=== PATIENT | female | born 1975 | race Hispanic/Latino ===

== ENCOUNTER 2022-05-17 11:59 | Inpatient (IN) | payer OTHER ==
[~2022-05-17] VITALS: Ht 162.6 cm; Wt 102.1 kg
[2022-05-17] MEDS ORDERED: SODIUM CHLORIDE 0.9% 1000ML 1,000 ML IV ONE (12:30)
[2022-05-17] MEDS ORDERED: HYDROCODONE/APAP 5MG-325MG TAB PO ONE (12:30)
[2022-05-17 12:50] LABS: BASOPHILS # (AUTO) 0.1 (0.0-0.1); BASOPHILS % 0.7 % (0.0-1.0); EOSINOPHILS # (AUTO) 0.2 (0.0-0.4); EOSINOPHILS % 1.8 % (0.0-6.0); HEMATOCRIT 23.5 % (34.2-44.1); LYMPHOCYTES # (AUTO) 2.8 (1.0-3.2); LYMPHOCYTES % 32.2 % (18.0-39.1); MEAN CORPUSCULAR HEMOGLOBIN 29.1 pg (28-32); MEAN CORPUSCULAR HGB CONC 32.8 g/dL (31-35); MEAN CORPUSCULAR VOLUME 88.7 fL (81-99); MONOCYTES # (AUTO) 0.7 (0.2-0.8); MONOCYTES % 7.8 % (4.4-11.3); NEUTROPHILS # (AUTO) 5.1 (2.1-6.9); NEUTROPHILS % 57.2 % (38.7-80.0); PLATELET COUNT 288 x10e3/uL (140-360); RED BLOOD COUNT 2.65 x10e6/uL (3.6-5.1); RED CELL DISTRIBUTION WIDTH 15.9 % (11.7-14.4)
[2022-05-17 12:55] LABS: CLARITY,URINE SL CLOUDY (CLEAR); COLOR,URINE YELLOW (YELLOW); LEUKOCYTE ESTERASE ,URINE NEGATIVE (NEGATIVE); NITRITE,URINE NEGATIVE (NEGATIVE)
[2022-05-17 12:56] LABS: KETONES,URINE >=160 (NEGATIVE); PROTEIN,URINE DIPSTICK 1+ (NEGATIVE); URINE UROBILINOGEN 1 mg/dL (0.2 - 1)
[2022-05-17 13:00] LABS: HEMOGLOBIN 7.7 g/dL (12.0-16.0)
[2022-05-17 13:01] LABS: INR 0.93; PROTHROMBIN TIME 13.3 seconds (11.9-14.5)
[2022-05-17 13:02] LABS: PARTIAL THROMBOPLASTIN TIME 26.6 seconds (23.8-35.5)
[2022-05-17 13:25] LABS: EPITHELIAL CELLS,URINE FEW /LPF
[2022-05-17 13:26] LABS: ALBUMIN 3.6 g/dL (3.5-5.0); ALBUMIN/GLOBULIN RATIO 0.9 (0.8-2.0); ANION GAP 13.4 mmol/L (8-16); BACTERIA,URINE FEW /HPF; CALCIUM 8.6 mg/dL (8.4-10.2); CREATININE, SERUM 0.66 mg/dL (0.57-1.11); POTASSIUM 3.4 mmol/L (3.5-5.1); RBC,URINE 0-5 /HPF (0-5); TRANSITIONAL EPI CELLS,URINE RARE; WBC,URINE (MAN) 0-5 /HPF (0-5)
[2022-05-17] MEDS ORDERED: IOPAMIDOL 370 MG/ML 100 ML INFUS..BTL INJ ONE (13:44)
[2022-05-17] MEDS ORDERED: ASPIRIN 81 MG CHEW TAB PO ONE (16:15)
[2022-05-17] MEDS: Morphine 2mg Syringe 2 MG/ML SYR IV PRN ×2 (18:07→22:25)
[2022-05-17] MEDS ORDERED: ONDANSETRON HCL INJ 2MG/ML 2ML 2 MG/ML VIAL ONE (18:13)
[2022-05-17] MEDS ORDERED: ONDANSETRON HCL INJ 2MG/ML 2ML 2 MG/ML VIAL IV STA (18:15)
[2022-05-17 20:00] VITALS: BP 112/58
[2022-05-17 22:02] LABS: CREATINE KINASE MB 0.6 ng/mL (0-5.0)
[2022-05-18] VITALS (8 sets, daily range): BP systolic 105–134; BP diastolic 54–81
[2022-05-18] MEDS ORDERED: BISACODYL 5 MG TAB EC PO ONE ×2 (00:30)
[2022-05-18 04:52] LABS: BASOPHILS # (AUTO) 0.1 (0.0-0.1); BASOPHILS % 0.5 % (0.0-1.0); EOSINOPHILS # (AUTO) 0.2 (0.0-0.4); HEMATOCRIT 22.1 % (34.2-44.1); HEMOGLOBIN 7.1 g/dL (12.0-16.0); LYMPHOCYTES # (AUTO) 2.8 (1.0-3.2); LYMPHOCYTES % 28.1 % (18.0-39.1); MEAN CORPUSCULAR HEMOGLOBIN 29.2 pg (28-32); MEAN CORPUSCULAR HGB CONC 32.1 g/dL (31-35); MEAN CORPUSCULAR VOLUME 90.9 fL (81-99); MONOCYTES # (AUTO) 0.8 (0.2-0.8); MONOCYTES % 8.2 % (4.4-11.3); NEUTROPHILS % 60.9 % (38.7-80.0); PLATELET COUNT 269 x10e3/uL (140-360); RED BLOOD COUNT 2.43 x10e6/uL (3.6-5.1); RED CELL DISTRIBUTION WIDTH 15.9 % (11.7-14.4)
[2022-05-18] MEDS ORDERED: CITRATE OF MAGNESIA 300ML BOTTLE PO ONE ×2 (05:00)
[2022-05-18 05:16] LABS: ALBUMIN 3.3 g/dL (3.5-5.0); ALBUMIN/GLOBULIN RATIO 0.8 (0.8-2.0); ANION GAP 10.8 mmol/L (8-16); CALCIUM 8.2 mg/dL (8.4-10.2); CREATININE, SERUM 0.67 mg/dL (0.57-1.11); POTASSIUM 3.8 mmol/L (3.5-5.1)
[2022-05-18 06:02] LABS: FERRITIN 20.06 ng/mL (4.63-204.00)
[2022-05-18 06:10] LABS: CREATINE KINASE MB 0.6 ng/mL (0-5.0)
[2022-05-18] MEDS: ONDANSETRON HCL INJ 2MG/ML 2ML 2 MG/ML VIAL IV PRN ×3 (06:32→21:25)
[2022-05-18] MEDS: PANTOPRAZOLE SOD 40 MG TABEC PO SCH (09:01)
[2022-05-18] MEDS: Morphine 2mg Syringe 2 MG/ML SYR IV PRN ×3 (09:01→21:26)
[2022-05-18 15:28] LABS: CREATINE KINASE MB 0.8 ng/mL (0-5.0)
[2022-05-18] MEDS ORDERED: HYOSCYAMINE SULFATE 0.5 MG/ML INJ ONE (19:13)
[2022-05-18] MEDS ORDERED: HYDROCORTISONE ACETATE 25 MG/SUPP.RECT SUPP RC STA (19:49)
[2022-05-18] MEDS: SODIUM FERRIC GLUCONATE COMPLX 125 MG in SODIUM CHLORIDE 0.9% 100 ML IV SCH (21:24)
[2022-05-18] MEDS: SODIUM CHLORIDE 0.9% 1000ML 1,000 ML IV SCH (21:27)
[2022-05-19] VITALS: BP 113/73
[2022-05-19 04:00] VITALS: BP 109/72
[2022-05-19 04:48] LABS: BASOPHILS % 0.4 % (0.0-1.0); EOSINOPHILS # (AUTO) 0.3 (0.0-0.4); EOSINOPHILS % 2.6 % (0.0-6.0); HEMATOCRIT 23.1 % (34.2-44.1); HEMOGLOBIN 7.4 g/dL (12.0-16.0); LYMPHOCYTES # (AUTO) 1.7 (1.0-3.2); LYMPHOCYTES % 17.7 % (18.0-39.1); MEAN CORPUSCULAR HEMOGLOBIN 29.1 pg (28-32); MEAN CORPUSCULAR VOLUME 90.9 fL (81-99); MONOCYTES # (AUTO) 0.6 (0.2-0.8); MONOCYTES % 6.3 % (4.4-11.3); NEUTROPHILS # (AUTO) 6.9 (2.1-6.9); NEUTROPHILS % 72.8 % (38.7-80.0); PLATELET COUNT 283 x10e3/uL (140-360); RED BLOOD COUNT 2.54 x10e6/uL (3.6-5.1); RED CELL DISTRIBUTION WIDTH 15.6 % (11.7-14.4)
[2022-05-19 05:08] LABS: ANION GAP 11.5 mmol/L (8-16); CALCIUM 7.9 mg/dL (8.4-10.2); CREATININE, SERUM 0.71 mg/dL (0.57-1.11); POTASSIUM 3.5 mmol/L (3.5-5.1)
[2022-05-19 07:58] VITALS: BP 119/76
[2022-05-19 08:01] VITALS: BP 119/76
[2022-05-19] MEDS: SODIUM FERRIC GLUCONATE COMPLX 125 MG in SODIUM CHLORIDE 0.9% 100 ML IV SCH ×2 (08:37→10:25)
[2022-05-19] MEDS: PANTOPRAZOLE SOD 40 MG TABEC PO SCH (08:39)
[2022-05-19] MEDS: ONDANSETRON HCL INJ 2MG/ML 2ML 2 MG/ML VIAL IV PRN (08:39)
[2022-05-19] MEDS: Morphine 2mg Syringe 2 MG/ML SYR IV PRN (08:39)
[2022-05-19] MEDS: HYDROCORTISONE ACETATE 25 MG/SUPP.RECT SUPP RC SCH ×2 (08:40→16:59)
[2022-05-19] MEDS ORDERED: HYDROCODONE/APAP 5MG-325MG TAB PO PRN (09:15)
[2022-05-19 12:00] VITALS: BP 112/70
[2022-05-19] MEDS: SODIUM CHLORIDE 0.9% 1000ML 1,000 ML IV SCH (14:59)
[2022-05-19 15:33] VITALS: BP 98/60
[2022-05-19] MEDS ORDERED: ASCORBIC ACID 500 MG TAB PO SCH (17:00)
[2022-05-19] MEDS ORDERED: PROTONIX40 MG/ML PO (17:44)
[2022-05-19] MEDS ORDERED: ASCORBIC ACID500 MG PO (17:44)
[2022-05-19] MEDS ORDERED: FEROSUL325 MG PO (17:44)
[2022-05-20] MEDS ORDERED: FERROUS SULFATE 325 MG TAB PO SCH (08:00)
== END 2022-05-19 18:42 | disposition home or self-care (01) | DRG 379 ==
LOC: ER 12:05 → ERHOLD 16:17 → MED/SURG 20:00
PROVIDERS: ADMIT Internal Medicine; ATTEND Internal Medicine
PROC: 0DBK8ZX Excision of Ascending Colon, Via Natural or Artificial Opening Endoscopic, Diagnostic (ICD-10-PCS; principal; 2022-05-18 18:51)
DX: K57.31 Diverticulosis of large intestine without perforation or abscess with bleeding (principal); D50.0 Iron deficiency anemia secondary to blood loss (chronic); E66.01 Morbid (severe) obesity due to excess calories; Z68.38 Body mass index [BMI] 38.0-38.9, adult; K80.80 Other cholelithiasis without obstruction; K76.0 Fatty (change of) liver, not elsewhere classified; K64.8 Other hemorrhoids; Z20.822 Contact with and (suspected) exposure to COVID-19; F12.10 Cannabis abuse, uncomplicated; F10.10 Alcohol abuse, uncomplicated; R73.9 Hyperglycemia, unspecified
CPT/HCPCS: 0223U; 36415; 45378; 45385; 71045; 74177; 80048; 80053; 81001; 82550; 82553; 82607; 82728; 82746; 82948; 83036; 83540; 83690; 84466; 84484; 84702; 85025; 85045; 85610; 85730; 86850; 86900; 88305; 93005; 96361; 99284; J1980; J2270; J2405; J2916; J7030; J7050; Q9967

== ENCOUNTER 2024-10-20 07:33 | Emergency (ER) | payer OTHER ==
[~2024-10-20] VITALS: Ht 162.6 cm; Wt 102.1 kg
[~2024-10-20 07:33] MED LIST: ASCORBIC ACID500 MG PO; FEROSUL325 MG PO; ONDANSETRON ODT4 MG PO; PROTONIX20 MG PO; PROTONIX40 MG/ML PO
[2024-10-20 07:37] VITALS: TEMP 98.8
[2024-10-20 08:00] LABS: BASOPHILS # (AUTO) 0.1 (0.0-0.1); BASOPHILS % 1.4 % (0.0-1.0); EOSINOPHILS # (AUTO) 0.3 (0.0-0.4); EOSINOPHILS % 3.5 % (0.0-6.0); HEMATOCRIT 34.9 % (34.2-44.1); HEMOGLOBIN 10.3 g/dL (12.0-16.0); LYMPHOCYTES # (AUTO) 1.8 (1.0-3.2); LYMPHOCYTES % 20.3 % (18.0-39.1); MEAN CORPUSCULAR HEMOGLOBIN 24.8 pg (28-32); MEAN CORPUSCULAR HGB CONC 29.5 g/dL (31-35); MEAN CORPUSCULAR VOLUME 84.1 fL (81-99); MONOCYTES # (AUTO) 0.7 (0.2-0.8); MONOCYTES % 7.9 % (4.4-11.3); NEUTROPHILS # (AUTO) 5.8 (2.1-6.9); NEUTROPHILS % 66.6 % (38.7-80.0); PLATELET COUNT 261 x10e3/uL (140-360); RED BLOOD COUNT 4.15 x10e6/uL (3.6-5.1); RED CELL DISTRIBUTION WIDTH 19.7 % (11.7-14.4); WHITE BLOOD COUNT 8.66 x10e3/uL (4.8-10.8)
[2024-10-20] MEDS: SODIUM CHLORIDE 0.9% 1000ML 1,000 ML IV STA (08:15)
[2024-10-20] MEDS: ONDANSETRON HCL INJ 2MG/ML 2ML 2 MG/ML VIAL IV STA (08:17)
[2024-10-20 08:35] LABS: CORONAVIRUS COVID-19 AG NEGATIVE (NEGATIVE); INFLUENZA A AG NEGATIVE (NEGATIVE); INFLUENZA B AG NEGATIVE (NEGATIVE); INR 0.86; PARTIAL THROMBOPLASTIN TIME 32.6 seconds (23.8-35.5); PROTHROMBIN TIME 12.3 seconds (11.9-14.5)
[2024-10-20 08:46] LABS: ALBUMIN 3.9 g/dL (3.5-5.0); ALBUMIN/GLOBULIN RATIO 0.9 (0.8-2.0); ANION GAP 17.8 mmol/L (8-16); BILIRUBIN,TOTAL 0.4 mg/dL (0.2-1.2); CALCIUM 8.7 mg/dL (8.4-10.2); CREATININE, SERUM 0.64 mg/dL (0.57-1.11); MAGNESIUM 1.8 MG/DL (1.3-2.1); POTASSIUM 3.8 mmol/L (3.5-5.1); TOTAL PROTEIN 8.2 g/dL (6.5-8.1)
[2024-10-20 08:52] LABS: TROPONIN I 0.02 ng/mL (0-0.300)
[2024-10-20 09:07] VITALS: RESP 18
[2024-10-20] MEDS ORDERED: SODIUM CHLORIDE 0.9% 100 ML ONE (09:57)
[2024-10-20] MEDS ORDERED: IOPAMIDOL 370 MG/ML 100 ML INFUS..BTL INJ ONE (09:57)
[2024-10-20] MEDS ORDERED: PANTOPRAZOLE SO40 MG PO (10:58)
[2024-10-20] MEDS ORDERED: ONDANSETRON ODT4 MG PO (10:58)
[2024-10-20] MEDS ORDERED: DICYCLOMINE HCL20 MG PO (10:58)
[2024-10-20 11:06] VITALS: PULSE 63; O2SAT 100
[2024-10-20] MEDS: DICYCLOMINE HCL 20 MG/2 ML VIAL IM ONE (11:06)
== END 2024-10-20 11:33 | disposition home or self-care (01) ==
LOC: ER 07:39
DX: K62.5 Hemorrhage of anus and rectum (principal); K57.90 Diverticulosis of intestine, part unspecified, without perforation or abscess without bleeding; K80.20 Calculus of gallbladder without cholecystitis without obstruction; E11.9 Type 2 diabetes mellitus without complications; Z11.52 Encounter for screening for COVID-19; R94.31 Abnormal electrocardiogram [ECG] [EKG]
CPT/HCPCS: 36415; 71045; 74174; 80053; 82550; 83690; 83735; 84484; 85025; 85610; 85730; 87428; 93005; 99284; J0500; J2405; J2470; J7030; J7050; Q9967

== ENCOUNTER 2025-04-03 09:14 | Emergency (ER) | payer OTHER ==
[~2025-04-03] VITALS: Ht 162.6 cm; Wt 102.1 kg
[~2025-04-03 09:14] MED LIST changes: +DICYCLOMINE HCL20 MG PO; +PANTOPRAZOLE SO40 MG PO
[2025-04-03 09:26] VITALS: TEMP 98
[2025-04-03 09:51] LABS: BASOPHILS # (AUTO) 0.1 (0.0-0.1); BASOPHILS % 0.8 % (0.0-1.0); EOSINOPHILS # (AUTO) 0.3 (0.0-0.4); EOSINOPHILS % 3.1 % (0.0-6.0); HEMATOCRIT 34.3 % (34.2-44.1); LYMPHOCYTES # (AUTO) 2.3 (1.0-3.2); LYMPHOCYTES % 23.3 % (18.0-39.1); MEAN CORPUSCULAR HEMOGLOBIN 25.3 pg (28-32); MEAN CORPUSCULAR HGB CONC 32.1 g/dL (31-35); MONOCYTES # (AUTO) 0.6 (0.2-0.8); MONOCYTES % 5.5 % (4.4-11.3); NEUTROPHILS # (AUTO) 6.7 (2.1-6.9); PLATELET COUNT 280 x10e3/uL (140-360); RED BLOOD COUNT 4.34 x10e6/uL (3.6-5.1); WHITE BLOOD COUNT 9.93 x10e3/uL (4.8-10.8)
[2025-04-03 10:11] LABS: INR 0.9
[2025-04-03 10:12] LABS: ALBUMIN 4.1 g/dL (3.5-5.0); ALBUMIN/GLOBULIN RATIO 0.9 (0.8-2.0); BILIRUBIN,TOTAL 0.8 mg/dL (0.2-1.2); CALCIUM 8.8 mg/dL (8.4-10.2); CREATININE, SERUM 0.75 mg/dL (0.57-1.11); PARTIAL THROMBOPLASTIN TIME 29.6 seconds (23.8-35.5); TOTAL PROTEIN 8.6 g/dL (6.5-8.1)
[2025-04-03] MEDS: ONDANSETRON HCL INJ 2MG/ML 2ML 2 MG/ML VIAL IV STA (10:13)
[2025-04-03] MEDS: SODIUM CHLORIDE 0.9% 1000ML 1,000 ML IV STA (10:13)
[2025-04-03] MEDS: DICYCLOMINE HCL 20 MG/2 ML VIAL IM ONE (10:13)
[2025-04-03 10:18] LABS: TROPONIN I 0.018 ng/mL (0-0.300)
[2025-04-03] MEDS ORDERED: IOPAMIDOL 370 MG/ML 100 ML INFUS..BTL INJ ONE (10:18)
[2025-04-03 12:56] LABS: CLARITY,URINE SL CLOUDY (CLEAR); COLOR,URINE YELLOW (YELLOW)
[2025-04-03 12:57] LABS: AMPHETAMINES SCREEN,URINE NEGATIVE (NEGATIVE); BENZODIAZEPINES SCREEN,URINE NEGATIVE (NEGATIVE); CANNABINOIDS SCREEN,URINE POSITIVE (NEGATIVE); COCAINE SCREEN,URINE NEGATIVE (NEGATIVE); METHADONE SCREEN, URINE NEGATIVE (NEGATIVE); OPIATES SCREEN,URINE POSITIVE (NEGATIVE); PHENCYCLIDINE SCREEN,URINE NEGATIVE (NEGATIVE)
[2025-04-03 13:00] VITALS: PULSE 60; RESP 18
[2025-04-03 13:54] LABS: BACTERIA,URINE RARE /HPF; BILIRUBIN,URINE NEGATIVE (NEGATIVE); GLUCOSE, URINE NEGATIVE (NEGATIVE); KETONES,URINE 1+ (NEGATIVE); LEUKOCYTE ESTERASE ,URINE NEGATIVE (NEGATIVE); NITRITE,URINE NEGATIVE (NEGATIVE); PH,URINE 7.5 (5 - 7); PROTEIN,URINE DIPSTICK NEGATIVE (NEGATIVE); RBC,URINE 0-5 /HPF (0-5); URINE UROBILINOGEN 1 mg/dL (0.2 - 1); WBC,URINE (MAN) 0-5 /HPF (0-5)
[2025-04-03 13:55] LABS: EPITHELIAL CELLS,URINE FEW /LPF
[2025-04-03 14:00] VITALS: BP 134/82; PULSE 60; RESP 18; O2SAT 95
[2025-04-03] MEDS ORDERED: DICYCLOMINE HCL20 MG PO (14:22)
== END 2025-04-03 14:25 | disposition home or self-care (01) ==
LOC: ER 09:20
DX: R10.32 Left lower quadrant pain (principal); K80.20 Calculus of gallbladder without cholecystitis without obstruction; K57.90 Diverticulosis of intestine, part unspecified, without perforation or abscess without bleeding; K76.0 Fatty (change of) liver, not elsewhere classified; E11.65 Type 2 diabetes mellitus with hyperglycemia
CPT/HCPCS: 36415; 71045; 74177; 80053; 80307; 81001; 82550; 82948; 83735; 84484; 85025; 85610; 85730; 93005; 99284; J0500; J2405; J2470; J7030; Q9967